=== PATIENT | female | born 2000 | race Caucasian/White ===

== ENCOUNTER 2020-10-12 05:38 | Emergency (ER) | payer OTHER ==
[2020-10-12 06:00] LABS: HEMOGLOBIN 12.5 gm/dl (12.3-15.3); RED BLOOD COUNT 4.18 M/UL (4.00-5.10); WHITE BLOOD COUNT 16.7 K/UL (4.5-11.0)
[2020-10-12 06:21] LABS: BUN/CREATININE RATIO 13 (0-10)
[2020-10-12] MEDS ORDERED: DICLEGIS DR 101 EACH PO (09:55)
== END 2020-10-12 11:00 | disposition home or self-care (01) ==
LOC: ER1 05:38
PROVIDERS: Family Medicine
DX: O21.9 Vomiting of pregnancy, unspecified (principal); O99.281 Endocrine, nutritional and metabolic diseases complicating pregnancy, first trimester; E86.0 Dehydration; O99.511 Diseases of the respiratory system complicating pregnancy, first trimester; J02.9 Acute pharyngitis, unspecified; O99.331 Smoking (tobacco) complicating pregnancy, first trimester; F17.200 Nicotine dependence, unspecified, uncomplicated; Z88.8 Allergy status to other drugs, medicaments and biological substances; Z3A.01 Less than 8 weeks gestation of pregnancy
CPT/HCPCS: 51701; 80053; 81001; 82550; 82553; 83874; 84484; 84702; 85025; 87081; 87880; 93005; 96374; 96375; 99284; J1200; J2765

== ENCOUNTER 2021-02-02 02:31 | Outpatient (CLI) | payer OTHER ==
[~2021-02-02 02:31] MED LIST: DICLEGIS DR 101 EACH PO
== END 2021-02-02 03:32 | disposition home or self-care (01) ==
LOC: GENOP 02:31
DX: O47.02 False labor before 37 completed weeks of gestation, second trimester (principal); Z3A.23 23 weeks gestation of pregnancy; O99.891 Other specified diseases and conditions complicating pregnancy; R10.9 Unspecified abdominal pain
CPT/HCPCS: 81001; 83518; G0463